=== PATIENT | female | born 1980 | race Hispanic/Latino ===

== ENCOUNTER 2021-06-04 05:37 | Day surgery (SDC) | payer MEDICAID ==
[2021-06-03 12:50] VITALS: BP 173/91
[2021-06-03 12:50] LABS: BASOPHILS % (AUTO) 0.5 % (0.0-5.0); EOSINOPHILS % (AUTO) 2.5 % (0.0-8.0); HEMATOCRIT 39.6 % (36-48); LYMPHOCYTES % (AUTO) 30.2 % (21.0-51.0); MEAN CORPUSCULAR HGB CONC 33.1 g/dL (32.0-36.0); MEAN CORPUSCULAR VOLUME 90.6 fL (79-99); MONOCYTES % (AUTO) 4.9 % (3.0-13.0); NEUTROPHILS % (AUTO) 61.7 % (40.0-77.0); PLATELET COUNT (AUTO) 241 K/uL (130-400); RED BLOOD CELL COUNT(AUTO) 4.37 MIL/uL (4.00-5.50); RED CELL DISTRIBUTION WIDTH 12.2 % (11.0-15.5); WHITE BLOOD COUNT (AUTO) 6.5 K/uL (4.8-10.8)
[2021-06-04] VITALS (15 sets, daily range): BP systolic 128–168; BP diastolic 77–109
[~2021-06-04] VITALS: Ht 157.5 cm; Wt 64.6 kg
[2021-06-04] MEDS ORDERED: LACTATED RINGERS 1000ML 1,000 ML IV ONE (05:40)
[2021-06-04] MEDS ORDERED: STRONG IODINE SOLN 14ML BOTTLE ONE (06:23)
[2021-06-04] MEDS ORDERED: ACETIC ACID 0.25% 1,000 ML IRRIG.SOLN ONE (06:24)
[2021-06-04] MEDS ORDERED: DEXAMETHASONE SOD PHOSPHATE 10MG/ML 1ML VIAL ONE (06:58)
[2021-06-04] MEDS ORDERED: LIDOCAINE PF 100MG/5ML (2%) SYRINGE 5ML ONE (06:58)
[2021-06-04] MEDS ORDERED: MIDAZOLAM HCL 1 MG/ML 2ML VIAL ONE (06:59)
[2021-06-04] MEDS ORDERED: PROPOFOL 10 MG/ML 20ML VIAL IV ONE (06:59)
[2021-06-04] MEDS ORDERED: ONDANSETRON 4MG INJ ONE (06:59)
[2021-06-04] MEDS ORDERED: FENTANYL CITRATE PF 50 MCG/1 ML 2ML VIAL ONE (06:59)
[2021-06-04] MEDS ORDERED: MEPERIDINE-PF 25 MG/ML SYG ONE (07:00)
== END 2021-06-04 09:20 | disposition home or self-care (01) ==
LOC: DAH 05:37
PROVIDERS: ATTEND Obstetrics & Gynecology
DX: D06.0 Carcinoma in situ of endocervix (principal); N06.9 Isolated proteinuria with unspecified morphologic lesion; Z20.822 Contact with and (suspected) exposure to COVID-19; I10 Essential (primary) hypertension; Z98.51 Tubal ligation status; Z98.891 History of uterine scar from previous surgery
CPT/HCPCS: 36415; 57520; 85025; 86850; 86900; 86901; 87635; A4215; A4221; A4222; A4223; A4335; A4351; A4510; A4600; A4663; A6260; C9803; J1100; J2175; J2250; J2405; J3010; J3490 ×2; J7120; J2001; J2704

== ENCOUNTER 2022-05-31 22:42 | Emergency (ER) | payer MEDICAID ==
[~2022-05-31] VITALS: Ht 154.9 cm; Wt 72.6 kg
[2022-05-31 22:47] VITALS: BP 139/72
[2022-05-31] MEDS ORDERED: DIPHENHYDRAMINE HCL 25 MG CAPSULE ONE (23:15)
[2022-05-31] MEDS ORDERED: FAMOTIDINE 20MG TAB ONE (23:21)
[2022-05-31] MEDS ORDERED: CETI1SOL17 PO (23:29)
[2022-05-31] MEDS ORDERED: FAMO-136 PO (23:29)
[2022-05-31] MEDS ORDERED: FAMOTIDINE 20MG TAB PO ONE (23:30)
== END 2022-05-31 23:36 | disposition home or self-care (01) ==
LOC: EDH 22:42
DX: L50.9 Urticaria, unspecified (principal); E11.9 Type 2 diabetes mellitus without complications; I10 Essential (primary) hypertension; Z98.890 Other specified postprocedural states
CPT/HCPCS: 99283; Q0163

== ENCOUNTER 2023-01-07 01:09 | Emergency (ER) | payer MEDICAID ==
[~2023-01-07] VITALS: Ht 154.9 cm; Wt 69.4 kg
[~2023-01-07 01:09] MED LIST: CETI1SOL17 PO; FAMO-136 PO
[2023-01-07 01:39] LABS: BASOPHILS % (AUTO) 0.2 % (0.0-5.0); EOSINOPHILS % (AUTO) 0.1 % (0.0-8.0); HEMATOCRIT 39.8 % (36-48); LYMPHOCYTES % (AUTO) 8.2 % (21.0-51.0); MEAN CORPUSCULAR HGB CONC 34.4 g/dL (32.0-36.0); MEAN CORPUSCULAR VOLUME 87.3 fL (79-99); MONOCYTES % (AUTO) 4.7 % (3.0-13.0); NEUTROPHILS % (AUTO) 86.5 % (40.0-77.0); PLATELET COUNT (AUTO) 202 K/uL (130-400); RED BLOOD CELL COUNT(AUTO) 4.56 MIL/uL (4.00-5.50); WHITE BLOOD COUNT (AUTO) 12.3 K/uL (4.8-10.8)
[2023-01-07 01:43] LABS: APPEARANCE,URINE CLEAR (CLEAR); BILIRUBIN,URINE NEGATIVE (NEGATIVE); COLOR,URINE LIGHT-YELLOW (YELLOW); GLUCOSE, URINE (UA) >=1000 mg/dL (NEGATIVE); KETONES,URINE 5 mg/dL (NEGATIVE); LEUKOCYTE ESTERASE ,URINE NEGATIVE Leu/uL (NEGATIVE); NITRATE,URINE NEGATIVE (NEGATIVE); OCCULT BLOOD,URINE NEGATIVE (NEGATIVE); PH,URINE 5.5 (5.0-8.0); PROTEIN,URINE 10 mg/dL (NEGATIVE); UROBILINOGEN,URINE 0.2 mg/dL (0.2-1.0)
[2023-01-07 01:47] LABS: CREATININE 0.6 mg/dL (0.5-1.5); POTASSIUM 3.3 mmol/L (3.5-5.1)
[2023-01-07 01:52] LABS: TOTAL PROTEIN, SERUM 7.8 g/dL (6.0-8.3)
[2023-01-07 01:56] LABS: MUCUS,URINE RARE LPF (None Seen); RBC,URINE 0-1 /HPF (0-1); SQUAMOUS EPITHELIAL CELL,UR FEW /HPF (0-2)
[2023-01-07] MEDS ORDERED: METOCLOPRAMIDE 10 MG/2 ML VIAL IVP ONE (02:00)
[2023-01-07] MEDS ORDERED: 0.9%NACL 1000ML 1,000 ML IV ONE (02:00)
[2023-01-07] MEDS ORDERED: KETOROLAC 30MG VIAL (30MG/ML) IVP ONE (02:00)
[2023-01-07 03:45] VITALS: BP 129/76; PULSE 78; RESP 20; O2SAT 99
[2023-01-07] MEDS ORDERED: IBUP-1493 PO (03:45)
== END 2023-01-07 04:06 | disposition home or self-care (01) ==
LOC: EDH 01:09
DX: R51.9 Headache, unspecified (principal); E11.9 Type 2 diabetes mellitus without complications; I10 Essential (primary) hypertension; Z20.822 Contact with and (suspected) exposure to COVID-19
CPT/HCPCS: 99284; 96374; 87635; 96361; 96375; 80053; 85025; 87804 ×2; 81001; 36415; C9803; J7030; J1885; J2765

== ENCOUNTER 2024-04-06 08:23 | Emergency (ER) | payer BC, MEDICAID ==
[~2024-04-06] VITALS: Ht 157.5 cm; Wt 63.5 kg
[~2024-04-06 08:23] MED LIST changes: +IBUP-1493 PO
[2024-04-06] MEDS: MORPHINE 4 MG SYG IM ONE (09:03)
[2024-04-06] MEDS: hydrALAZine 20MG/ML VIAL IV ONE (09:59)
[2024-04-06] MEDS: KETOROLAC 30MG VIAL (30MG/ML) IVP ONE (10:19)
[2024-04-06] MEDS ORDERED: KETO10TA2 PO (12:40)
[2024-04-06 13:00] VITALS: BP 167/82; PULSE 88; RESP 17; O2SAT 97
== END 2024-04-06 13:11 | disposition home or self-care (01) ==
LOC: EDH 08:23
DX: K05.10 Chronic gingivitis, plaque induced (principal); K06.1 Gingival enlargement; E56.9 Vitamin deficiency, unspecified; K05.30 Chronic periodontitis, unspecified; E11.9 Type 2 diabetes mellitus without complications; I10 Essential (primary) hypertension; Z90.49 Acquired absence of other specified parts of digestive tract; Z79.899 Other long term (current) drug therapy
CPT/HCPCS: 99284; 96374; 96375; 96372; J0360; J2270; J1885